=== PATIENT | female | born 1990 | race Caucasian/White ===

== ENCOUNTER 2016-08-05 22:33 | Emergency (ER) | payer OTHER ==
[~2016-08-05] VITALS: Ht 162.6 cm; Wt 57.0 kg
[~2016-08-05 22:33] MED LIST: FLUT9.9S NASAL; IBUP800T25 PO; LORA-186 PO
[2016-08-05 22:38] VITALS: Ht 162.6 cm; Wt 57.0 kg
[2016-08-05] MEDS ORDERED: IBUP-1542 PO (22:56)
[2016-08-05] MEDS ORDERED: AZIT250T94 PO (22:56)
[2016-08-05] MEDS ORDERED: CETI10CA PO (22:57)
--- NOTE | 2016-08-05 23:04 | ERD ---
ER Documentation Chief Complaint Date/Time DATE: 08/05/16 TIME: 23:03 Chief Complaint sore throat, both ear pain HPI Patient is a 26-year-old female who presents to the ED with sore throat, pain when she swallows at times last night. She states that her pain developed yesterday. She denies fever or chills. Denies abdominal pain, nausea, vomiting or diarrhea. Denies headache or dizziness. Denies neck pain or stiffness. Denies drooling. Denies shortness of breath or difficulty breathing. Denies chest pain. Denies leg pain or swelling. Denies sick contacts. Has taken ibuprofen for her symptoms. No other complaints. ROS All systems reviewed and are negative except as per history of present illness. Medications Home Meds Active Scripts Cetirizine Hcl* (Zyrtec*) 10 Mg Capsule, 10 MG PO DAILY, #30 TAB.CHEW Prov:SIN WILSON PA-C 08/05/16 Azithromycin* (Zithromax*) 250 Mg Tablet, 250 MG PO .ZPACK DIRECTED, #6 TAB TAKE 500 MG (2 TABS) THE FIRST DAY THEN 250 MG (1 TAB) DAYS 2-5 Prov:SIN WILSON PA-C 08/05/16 Ibuprofen* (Motrin*) 600 Mg Tab, 600 MG PO Q6, #30 TAB Prov:SIN WILSON PA-C 08/05/16 Loratadine* (Claritin*) 10 Mg Tablet, 10 MG PO DAILY, #30 TAB Prov:ROSI GRACIA PA-C 07/30/15 Ibuprofen* (Motrin*) 800 Mg Tab, 800 MG PO Q6H Y for PAIN, #30 TAB Prov:ROSI GRACIA PA-C 07/30/15 Fluticasone Propionate (Flonase Allergy Relief) 9.9 Ml [place].susp, 1 SPRAY NASAL BID, #1 BOTTLE TO EACH NOSTRIL Prov:ROSI GRACIA PA-C 07/30/15 Allergies Allergies: Coded Allergies: Penicillins (Verified Allergy, Unknown, rash, 07/30/15) PMhx/Soc History of Surgery: Yes (right breast cyst removed) Anesthesia Reaction: No Hx Neurological Disorder: No Hx Respiratory Disorders: No Hx Cardiac Disorders: No Hx Psychiatric Problems: No Hx Miscellaneous Medical Probl: No Hx Alcohol Use: No Hx Substance Use: No Hx Tobacco Use: No Smoking Status: Never smoker FmHx Family History: No coronary disease, No diabetes, No other Physical Exam Vitals Vital Signs Date Time Temp Pulse Resp B/P Pulse Ox O2 Delivery O2 Flow Rate FiO2 08/05/16 22:38 97.7 87 20 104/66 99 Physical Exam GENERAL: Well-developed, well-nourished female. Appears in no acute distress. HEAD: Normocephalic, atraumatic. EYES: Pupils are equally reactive bilaterally. EOMs grossly intact. No conjunctival erythema. ENT: Moist mucous membranes. No uvula deviation. No kissing tonsils. Bilateral exudates. NECK: Supple. No lymphadenopathy or thyromegaly. No meningismus. negative kernig. negative brudinski. LUNG: Clear to auscultation bilaterally. No rhonchi, wheezing, rales or coarse breath sounds. HEART: Regular rate and rhythm. No murmurs, rubs or gallops. NEUROLOGIC: Alert and oriented. Moving all four extremities. 5/5 strength in all extremities. Normal speech. Steady gait. SKIN: Normal color. Warm and dry. No rashes or lesions. Capillary refill < 2 seconds Procedures/MDM ER COURSE: I kept the patient and/or family informed of laboratory and diagnostic imaging results throughout the emergency room course. MEDICAL DECISION MAKING: This is a 26-year-old Female who presents with sore throat 1 day. Vital signs were reviewed. Patient is afebrile. Patient is not hypoxic. Patient is not toxic or ill-appearing. Patient likely has pharyngitis of strep etiology. Low suspicion for peritonsillar abscess, mononucleosis, dental abscess. Low suspicion for pneumonia, PE, pneumothorax, ACS, epiglottitis, obstruction, TB, pertussis, meningitis, sepsis. Patient does not show signs of respiratory distress and does not have trismus or drooling and is speaking in full sentences. DISCHARGE: At this time, patient is stable for discharge and outpatient management with no new complaints during the ER course. Patient was sent home with Zithromax, Motrin and Zyrtec. Patient will be discharged home with instructions to recheck for new or worsening symptoms such as fever, nausea, weakness, LOC and to follow up with primary care in the next 1-2 days. Patient was advised to return to the ER for any new or worsening symptoms. Plan was discussed and patient and/ or family understands and agrees. Home instructions were given. Departure Diagnosis: Primary Impression: Pharyngitis Pharyngitis/tonsillitis etiology: unspecified etiology Qualified Code: J02.9 - Pharyngitis, unspecified etiology Condition: Stable Patient Instructions: Pharyngitis, Strep (Presumed) Additional Instructions: Llame al doctor MAANA y bela canelo CLOTILDE PARA DENTRO DE 1-2 CHOI.Dgale a la secretaria que nosotros le instruimos hacer esta clotilde.Avise o llame si goldberg condicin se empeora antes de la clotilde. Regresa aqui si peor o no mejor. SIN WILSON PA-C Aug 05, 2016 23:04
== END 2016-08-05 23:31 | disposition home or self-care (01) ==
LOC: FTE 22:33
DX: J02.9 Acute pharyngitis, unspecified (principal)
CPT/HCPCS: 99283

== ENCOUNTER 2016-09-11 10:55 | Emergency (ER) | payer OTHER ==
[~2016-09-11] VITALS: Ht 160 cm; Wt 56.0 kg
[~2016-09-11 10:55] MED LIST changes: +AZIT250T94 PO; +CETI10CA PO; +IBUP-1542 PO
[2016-09-11 10:59] VITALS: Ht 160 cm; Wt 56.0 kg
[2016-09-11] MEDS ORDERED: ACETAMINOPHEN 500 MG TAB PO STA (12:46)
[2016-09-11] MEDS ORDERED: ONDANSETRON (ODT) 4 MG TAB ODT STA (12:46)
[2016-09-11 13:02] LABS: URINE BLOOD (Dip) POC Trace-intact (NEGATIVE)
[2016-09-11] MEDS ORDERED: ONDA4TAB14 PO (14:09)
[2016-09-11] MEDS ORDERED: ACET500C5 PO (14:09)
[2016-09-11 14:19] VITALS: BP 128/69; PULSE 68; RESP 18
--- NOTE | 2016-09-11 15:37 | ERD ---
ER Documentation Chief Complaint Date/Time DATE: 09/11/16 TIME: 15:34 Chief Complaint GENERALIZED BODY PAIN; ABDOMINAL PAIN HPI 26-year-old female patient with no significant past medical history presents the ED complaining of body aches, vomiting, diarrhea that started last night. Reports that she has had about 10 episodes of nonbilious nonbloody vomiting and nonmucoid nonbloody diarrhea. Reports that she has some slight suprapubic pain. Denies any sick contacts. States that she is unsure of what she ate caused her symptoms. Denies any chest pain, wheezing, shortness of breath, fever, chills. States that her last menses was 2 weeks ago. Denies any dysuria , urgency, frequency, hematuria, vaginal bleeding, vaginal discharge. ROS All systems reviewed and are negative except as per history of present illness. Medications Home Meds Active Scripts Acetaminophen* (Tylophen*) 500 Mg Capsule, 1 CAP PO Q6H Y for PAIN AND OR ELEVATED TEMP, #20 CAP Prov:KAYLIE IBRAHIM PA-C 09/11/16 Ondansetron (Ondansetron Odt) 4 Mg Tab.rapdis, 4 MG PO Q6H Y for NAUSEA AND/OR VOMITING, #10 TAB Prov:KAYLIE IBRAHIM PA-C 09/11/16 Cetirizine Hcl* (Zyrtec*) 10 Mg Capsule, 10 MG PO DAILY, #30 TAB.CHEW Prov:SIN WILSON PA-C 08/05/16 Azithromycin* (Zithromax*) 250 Mg Tablet, 250 MG PO .MargiPACK DIRECTED, #6 TAB TAKE 500 MG (2 TABS) THE FIRST DAY THEN 250 MG (1 TAB) DAYS 2-5 Prov:SIN WILSON PA-C 08/05/16 Ibuprofen* (Motrin*) 600 Mg Tab, 600 MG PO Q6, #30 TAB Prov:SIN WILSON PA-C 08/05/16 Loratadine* (Claritin*) 10 Mg Tablet, 10 MG PO DAILY, #30 TAB Prov:ROSI GRACIA PA-C 07/30/15 Ibuprofen* (Motrin*) 800 Mg Tab, 800 MG PO Q6H Y for PAIN, #30 TAB Prov:ROSI GRACIA PA-C 07/30/15 Fluticasone Propionate (Flonase Allergy Relief) 9.9 Ml [place].susp, 1 SPRAY NASAL BID, #1 BOTTLE TO EACH NOSTRIL Prov:SAMIAROSI Moreau PA-C 07/30/15 Allergies Allergies: Coded Allergies: Penicillins (Verified Allergy, Unknown, rash, 07/30/15) PMhx/Soc History of Surgery: Yes (right breast cyst removed) Anesthesia Reaction: No Hx Neurological Disorder: No Hx Respiratory Disorders: No Hx Cardiac Disorders: No Hx Psychiatric Problems: No Hx Miscellaneous Medical Probl: No Hx Alcohol Use: No Hx Substance Use: No Hx Tobacco Use: No Smoking Status: Never smoker Physical Exam Vitals Vital Signs Date Time Temp Pulse Resp B/P Pulse Ox O2 Delivery O2 Flow Rate FiO2 09/11/16 14:19 68 18 128/69 99 Room Air 09/11/16 10:59 99.1 110 18 109/66 97 Physical Exam Const: [id number], well-nourished. In no acute distress. Head: Atraumatic, normocephalic Eyes: Normal Conjunctiva without injection. No purulent discharge. ENT: Normal external ear, nose. Moist oropharynx without tonsillar exudates. Non -erythematous pharynx. Uvula midline. No drooling. No trismus. Neck: No cervical midline tenderness. Full range of motion. No meningismus. No cervical lymphadenopathy. No JVD. Resp: Clear to auscultation bilaterally. No wheezing, rhonchi, rales, or crackles. No accessory muscle use. No retractions. Cardio: Regular rate and rhythm. No murmurs, rubs or gallops. Abd: Soft, suprapubic tenderness, non distended. Normal bowel sounds. No palpable masses. No rebound tenderness. No guarding. Negative McBurney's point. Negative psoas sign. Negative obturator sign. Skin: No petechiae or rashes Back: No midline tenderness. No CVA tenderness. Ext: No cyanosis, or edema. Neur: Awake and alert. Normal gait. Normal coordination. Psych: Normal Mood and Affect Results 24 hrs Laboratory Tests Test 09/11/16 13:05 Bedside Urine pH (LAB) 7.0 Bedside Urine Protein (LAB) 1+ Bedside Urine Glucose (UA) Negative Bedside Urine Ketones (LAB) Negative Bedside Urine Blood Trace-intact Bedside Urine Nitrite (LAB) Negative Bedside Urine Leukocyte Esterase (L Trace Current Medications Medications (Trade) Dose Ordered Sig/Sharath Route PRN Reason Start Time Stop Time Status Last Admin Dose Admin Ondansetron HCl (Zofran Odt) 4 mg ONCE STAT ODT 09/11/16 12:46 09/11/16 12:47 DC 09/11/16 12:57 Acetaminophen (Tylenol Tab) 500 mg ONCE STAT PO 09/11/16 12:46 09/11/16 12:47 DC 09/11/16 12:57 Procedures/MDM This is a 26-year-old female patient with no significant past medical history presents the ED complaining of body aches, vomiting, diarrhea. Patient is afebrile and nontoxic-appearing. Patient has normal vital signs. Patient's symptoms are likely secondary to viral etiology. Patient was given Zofran and Tylenol here in the ED with improvement of her symptoms. Urine: No leukocyte esterase, no nitrites, no hematuria. Urine : Negative Low suspicion for gastritis, GERD, peptic ulcer disease, cholecystitis, choledocholithiasis, cholangitis, pancreatitis, appendicitis, bowel obstruction , ileus, volvulus, nephrolithiasis, pyelonephritis, hepatitis, perforated viscus , diverticulitis, abdominal hernia, acute abdomen, mesenteric ischemia or other emergent conditions. Discharge medications: Zofran, Tylenol Follow up with primary care physician in 1-2 days. Instructed patient to return to the ED sooner for any worsening symptoms. Patient's questions were answered. Patient understood and agreed with discharge plan. Patient discharged stable. Departure Diagnosis: Primary Impression: Vomiting and diarrhea Condition: Stable Patient Instructions: Self-Care for Vomiting and Diarrhea, Vomiting And Diarrhea, Nonspecific (Adult) Referrals: [facility] Usted se wood hecho un examen mdico de control que le indica que no est en canelo condicin que requiera tratamiento urgente en el Departamento de Emergencia. Un estudio ms profundo y el tratamiento de goldberg condicin pueden esperar sin ningn riesgo hasta que usted sea atendida/o en el consultorio de goldberg mdico o canelo cl makayla. Es responsabilidad suya arreglar canelo clotilde para el seguimiento del walker. MANEJO DE CONDICIONES NO URGENTES EN EL FUTURO 1) Si usted tiene un mdico de atencin primaria: Shabana debera llamar a goldberg mdico de atencin primaria antes de venir al departamento de emergencia. Despus de las horas de consultorio, goldberg doctor o goldberg asociado/a est disponible por telfono. El mdico o enfermero de lloyd en el servicio telefnico puede asesorarle por dane medio para atender el problema, o walker contrario se puede programar canelo clotilde. 2) Si usted no tiene un mdico de atencin primaria: Llame al mdico o clnica de referencia que aparece abajo germaine las horas de consultorio para hacer canelo clotilde para que le vean. CLINICAS: [facility] [phone] [facility] [facility] [phone] [address] [facility] [facility] [phone] [facility]. [facility] [phone] [facility] [address] [facility] [phone] [facility] [phone] [facility] () Shabana se wood hecho un examen mdico de control que le indica que no est en canelo condicin que requiera tratamiento urgente en el Departamento de Emergencia. Un estudio ms profundo y el tratamiento de goldberg condicin pueden esperar sin ningn riesgo hasta que ted sea atendida/o en el consultorio de goldberg mdico o canelo cl makayla. Es responsabilidad suya arreglar canelo clotilde para el seguimiento del walker. MANEJO DE CONDICIONES NO URGENTES EN EL FUTURO 1) Si usted tiene un mdico de atencin primaria: Usted debera llamar a goldberg mdico de atencin primaria antes de venir al departamento de emergencia. Despus de las horas de consultorio, goldberg doctor o goldberg asociado/a est disponible por telfono. El mdico o enfermero de lloyd en el servicio telefnico puede asesorarle por dane medio para atender el problema, o walker contrario se puede programar canelo clotilde. 2) Si usted no tiene un mdico de atencin primaria: Llame al mdico o condado institucions de referencia que aparece abajo germaine las horas de consultorio para hacer canelo clotilde para que le vean. SI USTED NO PUEDE PAGAR PARA GAURANG UN MEDICO puede ir a: [facility] [address] [place] [address] [facility] [address] [place] [address] [facility] [address] [place] [address] [facility] [address] [place], [place] [id number] [facility] URGENT CARE/SPECIALTIES Additional Instructions: Llame al doctor MAANA y bela canelo CLOTILDE PARA DENTRO DE 2-3 CHOI.Dgale a la secretaria que nosotros le instruimos hacer esta clotilde.Avise o llame si goldberg condicin se empeora antes de la clotilde. Regresa aqui si peor o no mejor. KAYLIE IBRAHIM PA-C Sep 11, 2016 15:37 KAYLIE IBRAHIM PA-C Sep 11, 2016 15:37
== END 2016-09-11 14:20 | disposition home or self-care (01) ==
LOC: FTE 10:55
DX: R11.10 Vomiting, unspecified (principal); R19.7 Diarrhea, unspecified
CPT/HCPCS: 81003; Z7610; 99283

== ENCOUNTER 2017-04-18 19:36 | Emergency (ER) | END 2017-04-18 21:30 | disposition home or self-care (01) ==

== ENCOUNTER 2017-06-11 22:38 | Emergency (ER) | END 2017-06-12 04:58 | disposition home or self-care (01) ==

== ENCOUNTER 2017-12-25 21:15 | Inpatient (IN) | END 2017-12-31 15:24 | disposition home or self-care (01) | DRG 775 ==